=== PATIENT | female | born 2000 | race African-American/Black ===

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

== ENCOUNTER 2025-03-16 10:39 | Emergency (ER) | payer OTHER, MEDICAID ==
[~2025-03-16] VITALS: Ht 154.9 cm; Wt 50.0 kg
[2025-03-16 10:59] VITALS: O2SAT 99
[2025-03-16] MEDS ORDERED: KETO10TA2 MT (13:07)
[2025-03-16 13:50] VITALS: BP 111/60; PULSE 77; RESP 16; TEMP 36.8; O2SAT 99
== END 2025-03-16 13:50 | disposition home or self-care (01) ==
LOC: ER 10:39
DX: M79.675 Pain in left toe(s) (principal); J45.909 Unspecified asthma, uncomplicated; Z79.899 Other long term (current) drug therapy
CPT/HCPCS: 73630; 73660; 99284